=== PATIENT | female | born 1960 ===

== ENCOUNTER 2022-03-23 07:26 | Inpatient (IN) ==
[2022-03-23] MEDS ORDERED: Magnesium Hydroxide LIQ 30 ML UDC PO PRN (18:13)
[2022-03-23] MEDS ORDERED: Senna TAB 8.6 mg TAB PO PRN (18:13)
[2022-03-23] MEDS: Heparin 5000 UNITS/ML 1 mL VIAL SUBCUT SCH (21:27)
[2022-03-24] MEDS: Heparin 5000 UNITS/ML 1 mL VIAL SUBCUT SCH ×2 (08:12→21:05)
[2022-03-24] MEDS: Polyethylene Glycol 3350 17 GM PACKET PO SCH (08:12)
[2022-03-25 07:05] LABS: Hematocrit 34 % (35-47); Hemoglobin 11.2 g/dL (12.0-16.0); Mean Corpuscular HGB Conc 33 g/dL (31-36); Mean Corpuscular Hemoglobin 31 pg (27-31); Mean Corpuscular Volume 92 fL (80-97); Mean Platelet Volume 8.5 fL (7.4-10.4); Platelet Count 312 10^3/uL (150-450); Red Blood Count 3.66 10^6 /uL (3.70-4.87); Red Cell Distribution Width 13 % (10-15); White Blood Count 16.8 10^3/uL (3.5-10.8)
[2022-03-25 07:32] LABS: Albumin 3.5 g/dL (3.2-5.2); Albumin/Globulin Ratio 1.7 (1-3); Calcium 8.7 mg/dL (8.6-10.3); Globulin 2.1 g/dL (2-4); Potassium 4.7 mmol/L (3.5-5.0); Total Bilirubin 0.5 mg/dL (0.2-1.0); Total Protein 5.6 g/dL (6.4-8.9); eGFR CKD-EPI 96.1 (>60)
[2022-03-25 08:54] LABS: ABS Eosinophils 0.4 10^3/ul (0-0.6); ABS Lymphocytes 2.2 10^3/ul (1.0-4.8); ABS Monocytes 1.2 10^3/ul (0-0.8); ABS Neutrophils 12.9 10^3/ul (1.5-7.7); Eosinophil % 2.5 %; Lymphocyte % 12.9 %
[2022-03-25] MEDS: Polyethylene Glycol 3350 17 GM PACKET PO SCH (09:15)
[2022-03-25] MEDS: Heparin 5000 UNITS/ML 1 mL VIAL SUBCUT SCH ×2 (09:16→21:54)
[2022-03-26 04:13] LABS: Urine Appearance Cloudy; Urine Bilirubin Negative (Negative); Urine Blood 1+ (Negative); Urine Color Yellow; Urine Glucose Negative (Negative); Urine Ketones Negative (Negative); Urine Nitrite Negative (Negative); Urine Protein Negative (Negative); Urine Specific Gravity 1.017 (1.002-1.030); Urine Urobilinogen Negative (Negative)
[2022-03-26 04:30] LABS: Urine Bacteria Absent (Absent); Urine Red Blood Cell 2+(6-10/hpf) (Absent); Urine Squamous Epithelial Cell Present (Absent); Urine White Blood Cell 3+(>20/hpf) (Absent)
[2022-03-26] MEDS: Polyethylene Glycol 3350 17 GM PACKET PO SCH (09:01)
[2022-03-26] MEDS: Heparin 5000 UNITS/ML 1 mL VIAL SUBCUT SCH ×2 (09:03→21:39)
[2022-03-27] MEDS: Polyethylene Glycol 3350 17 GM PACKET PO SCH (08:15)
[2022-03-27] MEDS: Heparin 5000 UNITS/ML 1 mL VIAL SUBCUT SCH ×2 (08:18→21:37)
[2022-03-27 09:27] LABS: Hematocrit 33 % (35-47); Hemoglobin 10.7 g/dL (12.0-16.0); Mean Corpuscular HGB Conc 33 g/dL (31-36); Mean Corpuscular Hemoglobin 30 pg (27-31); Mean Corpuscular Volume 91 fL (80-97); Mean Platelet Volume 8.1 fL (7.4-10.4); Platelet Count 281 10^3/uL (150-450); Red Blood Count 3.56 10^6 /uL (3.70-4.87); Red Cell Distribution Width 13 % (10-15); White Blood Count 9.9 10^3/uL (3.5-10.8)
[2022-03-27 10:26] LABS: ABS Basophils 0.1 10^3/ul (0-0.2); ABS Eosinophils 0.3 10^3/ul (0-0.6); ABS Lymphocytes 1.5 10^3/ul (1.0-4.8); ABS Monocytes 0.8 10^3/ul (0-0.8); ABS Neutrophils 7.2 10^3/ul (1.5-7.7); Eosinophil % 3.4 %; Lymphocyte % 15.1 %
[2022-03-27] MEDS: Sulfamethox/Trimethoprim DS TAB 800/160 mg PO SCH (21:37)
[2022-03-28] MEDS: Polyethylene Glycol 3350 17 GM PACKET PO SCH (09:33)
[2022-03-28] MEDS: Sulfamethox/Trimethoprim DS TAB 800/160 mg PO SCH ×2 (09:34→21:02)
[2022-03-28] MEDS: Heparin 5000 UNITS/ML 1 mL VIAL SUBCUT SCH ×2 (09:35→21:02)
[2022-03-29] MEDS: Polyethylene Glycol 3350 17 GM PACKET PO SCH (09:02)
[2022-03-29] MEDS: Sulfamethox/Trimethoprim DS TAB 800/160 mg PO SCH ×2 (09:02→20:16)
[2022-03-29] MEDS: Heparin 5000 UNITS/ML 1 mL VIAL SUBCUT SCH ×2 (09:02→20:16)
[2022-03-30] MEDS: Polyethylene Glycol 3350 17 GM PACKET PO SCH (07:45)
[2022-03-30] MEDS: Sulfamethox/Trimethoprim DS TAB 800/160 mg PO SCH ×2 (07:45→20:43)
[2022-03-30] MEDS: Heparin 5000 UNITS/ML 1 mL VIAL SUBCUT SCH ×2 (08:05→20:43)
[2022-03-31] MEDS: Polyethylene Glycol 3350 17 GM PACKET PO SCH (10:26)
[2022-03-31] MEDS: Sulfamethox/Trimethoprim DS TAB 800/160 mg PO SCH ×2 (10:26→21:34)
[2022-03-31] MEDS: Heparin 5000 UNITS/ML 1 mL VIAL SUBCUT SCH ×2 (10:26→21:35)
[2022-04-01 05:51] VITALS: BP 127/78
[2022-04-01 06:18] LABS: Hematocrit 32 % (35-47); Hemoglobin 10.8 g/dL (12.0-16.0); Mean Corpuscular HGB Conc 33 g/dL (31-36); Mean Corpuscular Hemoglobin 31 pg (27-31); Mean Corpuscular Volume 92 fL (80-97); Mean Platelet Volume 7.8 fL (7.4-10.4); Platelet Count 291 10^3/uL (150-450); Red Cell Distribution Width 13 % (10-15)
[2022-04-01 06:58] LABS: Albumin 3.8 g/dL (3.2-5.2); Albumin/Globulin Ratio 1.6 (1-3); Calcium 9.1 mg/dL (8.6-10.3); Globulin 2.4 g/dL (2-4); Potassium 4.6 mmol/L (3.5-5.0); Total Bilirubin 0.2 mg/dL (0.2-1.0); Total Protein 6.2 g/dL (6.4-8.9); eGFR CKD-EPI 88.5 (>60)
[2022-04-01] MEDS: Heparin 5000 UNITS/ML 1 mL VIAL SUBCUT SCH (08:44)
[2022-04-01] MEDS: Sulfamethox/Trimethoprim DS TAB 800/160 mg PO SCH (08:44)
[2022-04-01] MEDS: Polyethylene Glycol 3350 17 GM PACKET PO SCH (08:44)
[2022-04-01 09:03] LABS: ABS Basophils 0.1 10^3/ul (0-0.2); ABS Eosinophils 0.5 10^3/ul (0-0.6); ABS Lymphocytes 2.3 10^3/ul (1.0-4.8); ABS Monocytes 0.4 10^3/ul (0-0.8); ABS Neutrophils 4.8 10^3/ul (1.5-7.7); Eosinophil % 5.8 %; Lymphocyte % 28.6 %; Nucleated Red Blood Cells % 0.1
== END 2022-04-01 11:15 | disposition home or self-care (01) | DRG 862 ==
LOC: PMRU 16:33
PROVIDERS: ADMIT Physical Medicine & Rehabilitation; ATTEND Physical Medicine & Rehabilitation